=== PATIENT | male | born 1980 | race Caucasian/White ===

== ENCOUNTER 2016-10-24 09:22 | Emergency (ER) | payer OTHER ==
[2016-10-24 10:11] VITALS: BP 135/81
[2016-10-24] MEDS ORDERED: KETOROLAC TROMETHAMINE 60 MG/2 ML VIAL IM ONE ×2 (11:58→12:12)
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
[2016-10-24 12:36] LABS: Hematocrit 33.7 % (42.0-52.0); Mean Cell Volume 86.9 fl (78-100); Mean Corpuscular Hemoglobin 28.4 pg (27-31); Mean Corpuscular Hgb Conc 32.6 g/dl (32-36); Mean Platelet Volume 8.3 fl (6.0-9.5); Neutrophil # 3.9 K/mm3 (1.3-6.0); Neutrophil % 58.7 % (42-75.0); Platelet Count 334 K/mm3 (150-450); Red Blood Count 3.88 M/mm3 (4.7-6.0); Red Cell Distribution Width 13.3 % (11.5-14.0); White Blood Count 6.6 K/mm3 (4.0-10.5)
[2016-10-24] MEDS ORDERED: NAPROXEN SODIUM 550 MG TABLET PO ONE (12:38)
[2016-10-24] MEDS ORDERED: NAPROXEN SODIUM 550 MG TABLET ONE (12:39)
[2016-10-24 12:49] LABS: Albumin * 3.4 gm/dl (3.4-5.0); Anion Gap 10.8 mmol/L (6.8-13.8); BUN/Creatinine Ratio 10.6 (9.0-21.6); Bilirubin, Total 0.2 mg/dL (0.0-1.1); Ca. Corrected For Albumin 8.8 mg/dL (8.4-10.2); Calcium * 8.6 mg/dL (7.9-10.9); Carbon Dioxide 27.7 mmol/L (24-32.6); Potassium 3.5 mmol/L (3.4-4.6); Total Protein 6.7 gm/dL (6.2-8.2)
== END 2016-10-24 12:50 | disposition left against medical advice (07) ==
LOC: ER 09:22
DX: R60.0 Localized edema (principal); M79.641 Pain in right hand

== ENCOUNTER 2017-02-10 12:22 | Emergency (ER) | payer OTHER ==
[2017-02-10] MEDS ORDERED: KETOROLAC TROMETHAMINE 60 MG/2 ML VIAL IM ONE ×2 (12:44→12:55)
--- OUTSIDE RECORDS SUMMARY | 2017-02-10 12:44 | XMS REPORT | Continuity of Care Document ---
:1980 Author Organization [facility] ([facility]) [place] [address] Phone [phone] Care Team Providers Name Role Phone Provider, No-Primary Care Primary Care Provider Unavailable Source Comments This disclosure is being made pursuant to the Care Everywhere program, applicable federal and state laws, and may not contain all informaitonavailable regarding this patient.[facility] ([facility]) Active Allergies and Adverse Reactions No Known Allergies Current Medications Prescription Sig. Disp. Refills Start Date End Date Status HYDROcodone-acetaminoph Take 1-2 tablets 20 tablet 0 07/10/2016 Active en 5-325 mg per tablet by mouth every 6 hours as needed. Active Problems Problem Noted Date Thoracic or lumbosacral neuritis or radiculitis, unspecified 11/01/2002 Sciatica 08/15/2002 Social History Tobacco Use Types Packs/Day Years Used Date Never Smoker Smokeless Tobacco: Former User Comments:Quit 6 months ago (07/10/16) Alcohol Use Drinks/Week oz/Week Comments Yes occassionally Last Filed Vital Signs Vital Sign Reading Time Taken Blood Pressure 138/91 07/10/2016 3:55 AM CDT Pulse 82 07/10/2016 3:55 AM CDT Temperature 36.2 C (97.2 F) 07/10/2016 3:55 AM CDT Respiratory Rate 18 07/10/2016 3:55 AM CDT Height 1.88 m (6' 2.01") 08/09/2002 1:33 PM [employer] Weight 81.598 kg (179 lb 14.2 oz) 08/09/2002 1:33 PM [employer] Body Mass Index 23.09 08/09/2002 1:33 PM [employer] Oxygen Saturation 97% 07/10/2016 3:55 AM CDT Plan of Care Health Maintenance Due Date Last Done Comments Hepatitis B Vaccine (1 of 3 - Primary Series) 1980 Tdap Vaccine 1992 Lipid Disorder Screening 1999 MMR Vaccine 1999 Td Vaccine 1999 Varicella Vaccine (1 of 2 - Adult - No Evidence of 1999 Immunity) Influenza Vaccine: Seasonal (#1) 05/03/2016 Results from Last 3 Months Not on file
--- OUTSIDE RECORDS SUMMARY | 2017-02-10 12:44 | XMS REPORT | Continuity of Care Document ---
:1980 Author Organization [facility] [place] [address] Care Team Providers Name Role Phone Unavailable Primary Care Provider Unavailable Source Comments This disclosure is being made pursuant to the [employer] program and maynot contain all information available regarding this patient.[facility] Active Allergies and Adverse Reactions Not on File Current Medications Be aware that medications may not be up to date as of this document. Alwaysverify current medications with the patient. Not on file Active Problems Not on file Social History Tobacco Use Types Packs/Day Years Used Date Never Assessed Plan of Care Health Maintenance Due Date Last Done Comments Retired-Pertussis Vaccine Adult 2000 Retired-Tetanus Vaccine Adult 2000 Retired-INFLUENZA VACCINE 06/03/2015 Results from Last 3 Months Not on file
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
[2017-02-10 14:54] VITALS: BP 123/90
== END 2017-02-10 14:48 | disposition home or self-care (01) ==
LOC: ER 12:22
PROC: 2W3EX1Z Immobilization of Right Hand using Splint (ICD-10-PCS; principal; 2017-02-10)
DX: G56.01 Carpal tunnel syndrome, right upper limb (principal); M65.841 Other synovitis and tenosynovitis, right hand; S62.342 Nondisplaced fracture of base of third metacarpal bone, right hand

== ENCOUNTER 2017-07-18 12:43 | Emergency (ER) | payer SELFPAY ==
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
[2017-07-18] MEDS ORDERED: oxyCODONE HCL/ACETAMINOPHEN 1 TAB TABLET PO ONE (14:08)
[2017-07-18] MEDS ORDERED: oxyCODONE HCL/ACETAMINOPHEN 1 TAB TABLET ONE (14:13)
[2017-07-18 14:19] VITALS: BP 128/88
== END 2017-07-18 14:19 | disposition home or self-care (01) ==
LOC: ER 12:43
DX: S02.2XXA Fracture of nasal bones, initial encounter for closed fracture (principal); S02.5XXB Fracture of tooth (traumatic), initial encounter for open fracture; V17.0XXA Pedal cycle driver injured in collision with fixed or stationary object in nontraffic accident, initial encounter; Y93.55 Activity, bike riding